=== PATIENT | male | born 1975 | race Caucasian/White ===

== ENCOUNTER 2017-10-23 23:10 | Emergency (ER) | payer SELFPAY ==
[2017-10-23 23:10] VITALS: BP 134/87
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
== END 2017-10-23 23:11 | disposition left against medical advice (07) ==
LOC: MED 23:10
DX: T40.1X1A Poisoning by heroin, accidental (unintentional), initial encounter (principal); Y92.89 Other specified places as the place of occurrence of the external cause
CPT/HCPCS: 99283